=== PATIENT | male | born 1950 ===

== ENCOUNTER 2017-03-30 06:14 | Inpatient (IN) | payer MEDICARE, OTHER ==
[2017-03-17 12:35] VITALS: BMI 19.5
[2017-03-30] MEDS ORDERED: Midazolam 2 MG/2 ML VIAL ONE (07:25)
[2017-03-30] MEDS ORDERED: Succinylcholine 200 mg/10 ml Inj IV ONE (07:25)
[2017-03-30] MEDS ORDERED: Rocuronium 10 mg/ml (5 ml) ONE ×2 (07:25→09:31)
[2017-03-30] MEDS ORDERED: Propofol 10 mg/ml Inj (20 ML) ONE (07:26)
[2017-03-30] MEDS ORDERED: Bupivacaine 0.5% Inj(30mL) ONE (07:29)
[2017-03-30] MEDS ORDERED: ePHEDrine 50 mg/ml Inj ONE (08:03)
[2017-03-30] MEDS ORDERED: Tranexamic Acid 2 ML ONE (08:14)
[2017-03-30] MEDS ORDERED: Bupivacaine Liposomal Inj 20 ml ONE (08:15)
[2017-03-30] MEDS ORDERED: Sodium Chloride 0.9% 40 ML IV ONE (08:25)
[2017-03-30] MEDS ORDERED: Morphine 1 mg/ml preservative-free Inj(Duramorph) ONE (10:29)
[2017-03-30] MEDS ORDERED: Neostigmine Methylsulfate 3mg/3ml Syringe IV ONE (11:00)
[2017-03-30] MEDS ORDERED: HYDROmorphone 0.5 mg/0.5 ml ISec IVP PRN ×2 (11:25→12:00)
[2017-03-30] MEDS ORDERED: Sodium Chloride 0.9% 1,000 ML IV SCH (11:30)
[2017-03-30] MEDS ORDERED: HYDROmorphone 0.5 mg/0.5 ml ISec ONE ×3 (11:58→12:15)
[2017-03-30] MEDS ORDERED: HYDROmorphone 0.5 mg/0.5 ml ISec IVP ONE ×3 (11:59→12:29)
[2017-03-30] MEDS ORDERED: Albuterol 0.5% Inhal Sol (2.5 mg/0.5 ml) UD IH PRN (12:05)
--- NOTE | 2017-03-30 13:29 | RAD ---
PROCEDURE: Pelvis single view HISTORY: TOTAL HIP REPLACEMENT (RIGHT) COMPARISON: TECHNIQUE: Single-view FINDINGS: There is a right hip prosthesis in satisfactory position. There are no complicating factors. Degenerative changes are seen in the left hip IMPRESSION: As above
[2017-03-30] MEDS: ceFAZolin 2 GM in Sodium Chloride 0.9% 100 ML IVPB SCH ×2 (16:48→23:18)
[2017-03-30] MEDS: Sodium Chloride 0.9% 1,000 ML IV SCH (16:48)
[2017-03-30] MEDS: Oxycodone/Acetaminophen 5/325 mg Tab PO PRN (21:14)
[2017-03-30] MEDS ORDERED: Pneumococcal 23-Valent Vaccine IM ONE (22:31)
[2017-03-30] MEDS ORDERED: Influenza Vaccine 60 mcg/0.5 mL SYR (4YR UP) IM ONE (22:31)
--- NOTE | 2017-03-30 22:33 | CP.PCM.CON ---
<Cherri Luis - Last Filed: 03/30/17 22:19> History of Present Illness - History of Present Illness History of Present Illness: Medicine Consult Note Reason for consult: Post op management This 66yo M with past medical history osteoarthritis and tobacco abuse who admitted for status post R hip replacement day #0. There were no complications post op. Hip replacement was done because of DJD. Patient is resting comfortably in bed. He reports feeling well today with mild pain in his R hip. Patient says he feels anxious at time. He denies chest pain, shortness of breath , nausea/vomiting/diarrhea, fever/chills, constipation, dysuria/hematuria, numbness/tingling. Past medical history: osteoarthritis, tobacco abuse, anxiety Past surgical history: B/L cataract, R hip replacement Home meds: Naproxen, Protonix, Klonipin as needed Allergies: NKDA Social history: smokes 15 cig per day x 40yrs, denies EtOH or drug use Family history: Breast cancer- Sister PMD: Dr. Cherry Review of Systems - Review of Systems All systems: reviewed and no additional remarkable complaints except Review of Systems: 12 point ROS reviewed as per HPI Past Patient History - Past Social History Smoking Status: Heavy Smoker > 10 Cigarettes Daily Alcohol: None Drugs: Denies - CARDIAC Hx Pacemaker: No - PULMONARY Hx Respiratory Disorders: Yes Hx Asthma: Yes - NEUROLOGICAL Hx Paralysis: No - HEENT Hx Cataracts: Yes - ENDOCRINE/METABOLIC Hx Endocrine Disorders: No - HEMATOLOGICAL/ONCOLOGICAL Hx Blood Transfusions: No - MUSCULOSKELETAL/RHEUMATOLOGICAL Hx Musculoskeletal Disorders: Yes - GASTROINTESTINAL Hx Gastrointestinal Disorders: No - GENITOURINARY/GYNECOLOGICAL Hx Genitourinary Disorders: No Hx Reproductive Disorders: No - PSYCHIATRIC Hx Emotional Abuse: No Hx Physical Abuse: No Hx Substance Use: No - SURGICAL HISTORY Hx Surgeries: Yes - ANESTHESIA Hx Anesthesia Reactions: No Hx Malignant Hyperthermia: No Meds Allergies/Adverse Reactions: Allergies Allergy/AdvReac Type Severity Reaction Status Date / Time No Known Allergies Allergy Verified 03/17/17 12:34 - Medications Medications: Current Medications Acetaminophen (Tylenol 325mg Tab) 650 mg PO Q4H PRN PRN Reason: Fever >100.4 F Albuterol Sulfate (Albuterol 0.5% Inhal Sylvia (2.5 Mg/0.5 Ml) Ud) 2.5 mg IH DAILY PRN PRN Reason: Shortness of Breath Clonazepam (Klonopin) 0.5 mg PO HS [facility] PRN Reason: Protocol Last Admin: 03/30/17 21:15 Dose: 0.5 mg Docusate Sodium (Colace) 100 mg PO BID [facility] Last Admin: 03/30/17 17:12 Dose: 100 mg Enoxaparin Sodium (Lovenox) 40 mg SC DAILY [facility] PRN Reason: Protocol Hydromorphone HCl (Dilaudid) 0.5 mg IVP Q4H PRN PRN Reason: Pain, severe (8-10) Cefazolin Sodium 2 gm/ Sodium (Chloride) 100 mls @ 200 mls/hr IVPB Q8H [facility] PRN Reason: Protocol Stop: 03/31/17 00:29 Last Admin: 03/30/17 16:48 Dose: 200 mls/hr Sodium Chloride (Sodium Chloride 0.9%) 1,000 mls @ 100 mls/hr IV .Q10H [facility] Last Admin: 03/30/17 16:48 Dose: 100 mls/hr Metoclopramide HCl (Reglan) 10 mg IV ONCE PRN PRN Reason: Nausea/Vomiting Nicotine (Nicoderm Cq) 1 patch TD DAILY [facility] Last Admin: 03/30/17 21:20 Dose: 1 patch Oxycodone/Acetaminophen (Percocet 5/325 Mg Tab) 2 tab PO Q4H PRN PRN Reason: Pain, moderate (4-7) Stop: 04/02/17 11:58 Last Admin: 03/30/17 21:14 Dose: 2 tab Pantoprazole Sodium (Protonix Ec Tab) 40 mg PO DAILY [facility] Physical Exam - Constitutional Appears: No Acute Distress - Head Exam Head Exam: ATRAUMATIC, NORMAL INSPECTION, NORMOCEPHALIC - Eye Exam Eye Exam: Normal appearance, PERRL Pupil Exam: NORMAL ACCOMODATION, PERRL - ENT Exam ENT Exam: Mucous Membranes Moist - Respiratory Exam Respiratory Exam: Clear to Auscultation Bilateral, NORMAL BREATHING PATTERN. absent: Rales, Rhonchi, Wheezes - Cardiovascular Exam Cardiovascular Exam: REGULAR RHYTHM, +S1, +S2. absent: Gallop, Rubs, Systolic Murmur - GI/Abdominal Exam GI & Abdominal Exam: Normal Bowel Sounds, Soft. absent: Mass, Rebound, Rigid, Tenderness - Extremities Exam Additional comments: R hip dressing in place- clean and dry - Neurological Exam Neurological exam: Alert, CN II-XII Intact, Oriented x3 - Skin Skin Exam: Dry, Warm Results - Vital Signs Recent Vital Signs: Last Vital Signs Temp 97.2 F L 03/30/17 16:00 Pulse 69 03/30/17 16:00 Resp 18 03/30/17 16:00 BP 97/59 L 03/30/17 16:00 Pulse Ox 95 03/30/17 16:00 - Labs Labs: Laboratory Results - last 24 hr 03/30/17 06:33 Blood Type O POSITIVE Antibody Screen Negative BBK History Checked Patient has bt Assessment & Plan - Assessment and Plan (Free Text) Assessment: This 66yo M with past medical history osteoarthritis and tobacco abuse who admitted for status post R hip replacement day #0. Plan: 1. R Hip replacement - Post op day #0 - Follow up ortho recs - Ancef as per PMD - Continue pain control with dilaudid and Percocet - NS@100 - Reglan prn nausea - Colace - Tylenol prn fever 2. Tobacco abuse - Nicoderm patch - Duoneb prn - counseled on smoking cessation 3. Remote hx of anxiety - Klonopin prn anxiety GI ppx: Protonix DVT ppx: Lovenox Case seen, discussed and reviewed with attending. Jamshid Luis PGY2 <Frida Plascencia - Last Filed: 03/31/17 03:07> Meds - Medications Medications: Current Medications Acetaminophen (Tylenol 325mg Tab) 650 mg PO Q4H PRN PRN Reason: Fever >100.4 F Albuterol Sulfate (Albuterol 0.5% Inhal Sylvia (2.5 Mg/0.5 Ml) Ud) 2.5 mg IH DAILY PRN PRN Reason: Shortness of Breath Clonazepam (Klonopin) 0.5 mg PO HS [facility] PRN Reason: Protocol Last Admin: 03/30/17 21:15 Dose: 0.5 mg Diphenhydramine HCl (Benadryl) 25 mg PO Q6 PRN PRN Reason: Itching / Pruritus Docusate Sodium (Colace) 100 mg PO BID [facility] Last Admin: 03/30/17 17:12 Dose: 100 mg Enoxaparin Sodium (Lovenox) 40 mg SC DAILY [facility] PRN Reason: Protocol Hydromorphone HCl (Dilaudid) 0.5 mg IVP Q4H PRN PRN Reason: Pain, severe (8-10) Sodium Chloride (Sodium Chloride 0.9%) 1,000 mls @ 100 mls/hr IV .Q10H [facility] Last Admin: 03/30/17 16:48 Dose: 100 mls/hr Metoclopramide HCl (Reglan) 10 mg IV ONCE PRN PRN Reason: Nausea/Vomiting Nicotine (Nicoderm Cq) 1 patch TD DAILY [facility] Last Admin: 03/30/17 21:20 Dose: 1 patch Oxycodone/Acetaminophen (Percocet 5/325 Mg Tab) 2 tab PO Q4H PRN PRN Reason: Pain, moderate (4-7) Stop: 04/02/17 11:58 Last Admin: 03/30/17 21:14 Dose: 2 tab Pantoprazole Sodium (Protonix Ec Tab) 40 mg PO DAILY [facility] Results - Vital Signs Recent Vital Signs: Last Vital Signs Temp 97.2 F L 03/30/17 22:16 Pulse 69 03/30/17 22:16 Resp 18 03/30/17 22:16 BP 97/59 L 03/30/17 22:16 Pulse Ox 95 03/30/17 16:00 - Labs Labs: Laboratory Results - last 24 hr 03/30/17 06:33 Blood Type O POSITIVE Antibody Screen Negative BBK History Checked Patient has bt Attending/Attestation - Attestation I have personally seen and examined this patient.: Yes I have fully participated in the care of the patient.: Yes I have reviewed all pertinent clinical information: Yes Notes (Text): 03/31/17 03:06 Patient was seen when he was in bed # 562-01. Agree with consult note.
--- NOTE | 2017-03-31 00:25 | OP ---
PROCEDURE DATE: 03/30/2017 PREOPERATIVE DIAGNOSIS: Right hip arthritis. POSTOPERATIVE DIAGNOSIS: Right hip arthritis. PROCEDURE: Right total hip arthroplasty. SURGEON: Rolando Max MD. EMPLOYEE DEVELOPMENT DIRECTOR: Grace Croft, the physician dental laboratory assistant. Ms. Croft was scrubbed and present throughout the entire case and assisted in the patient's positioning, retraction and wound closure. TYPE OF ANESTHESIA: General. COMPLICATIONS: None. ESTIMATED BLOOD LOSS: 100 mL. IMPLANT: Biomet Dual Mobility hip. INDICATION FOR PROCEDURE: This is a 66-year-old gentleman with longstanding right hip pain. Clinical examination was consistent with a mild limb length discrepancy with the right leg longer than the left. Pain and loss of range of motion with internal and external rotation. Pain with resisted hip flexion and gait abnormality. Radiographic examination consistent with advanced degenerative joint disease. After a period of failed nonsurgical management, recommendation was for right total hip arthroplasty. The risks, benefits, and alternatives of the procedure were discussed with the patient and informed consent was obtained. DESCRIPTION OF PROCEDURE: After the surgical site was finally identified in the preoperative holding area, the patient was taken to the operating room and placed supine on the operating table. After administration of general anesthesia, the patient received 2 g of Ancef IV. Stewart catheter was inserted. The patient was then positioned in the lateral decubitus position with the right hip up towards the ceiling. Care was taken to make sure all bony prominences and nerves were well padded and protected. A Venodyne boot was placed on nonoperative extremity. Axillary roll was placed in the left axilla and the right lower extremity was prepped and draped in the usual sterile fashion. Bony landmarks were identified about the right hip and approximately a 10 cm curvilinear incision was made. Soft tissue was dissected sharply down to the fascia. The fascia was incised and Charnley retractor was placed. Short external rotators were identified, tagged, and resected off the proximal femur. T-type capsulotomy was performed and the hip was dislocated. At this point, based on our preoperative templating, femoral neck resection was done and the femoral head was removed. It was then passed off as specimen. An anterior capsulotomy was performed with the acetabulum was adequately exposed. The acetabulum was reamed sequentially to allow for 54 mm press-fit cup. Care was taken to maintain proper acetabular height and version. A trial cup was placed and satisfied with the position. The trial was removed and the hip was pulse lavaged. The bony surfaces were dried and actual cup was impacted into place. The cup was further fixed with 2 screws in posterior and superior quadrants. At this point, a trial liner was placed. Attention was then directed to the femur. Medullary canal of the proximal femur was reamed and broached sequentially to allow for 12 mm press-fit stem. The calcar was planned with a trial neck and head in place, the hip was reduced and was taken through a range of motion, was noted to be stable with approximately equal limb lengths. At this point, the trial components were removed and the hip joint was pulse lavaged again with antibiotic saline solution. The bony surfaces were dried and the actual stem was impacted into place making sure to maintain proper version. Actual liner and head were then placed and the hip was reduced. Again, the hip was taken through a range of motion and was noted to be stable with approximately equal limb length. At this point, capsule was repaired to bone using #1 Vicryl suture. The short external rotators were also repaired in a similar fashion using #1 Vicryl suture. Deep fascia was closed using #1 Vicryl suture and the subcutaneous tissue was closed using 0 Vicryl and 2-0 Vicryl suture and the skin was closed using boogie. A sterile dressing was applied, and abduction pillow was placed. Intraoperative x-rays were taken showing the hip implants in good position. At this point, the patient was awakened from the procedure and taken to the recovery room in stable condition. Rolando Max MD
[2017-03-31] MEDS: Oxycodone/Acetaminophen 5/325 mg Tab PO PRN (03:12)
[2017-03-31 07:00] LABS: BASO # 0.01 K/mm3 (0.0-2.0); BASO % 0.1 % (0.0-3.0); EOS # 0.1 (0.0-0.7); EOS % 0.6 % (1.5-5.0); GRAN # 5.27 (1.4-6.5); GRAN % 66.5 % (50.0-68.0); HEMOGLOBIN 9.6 g/dL (14.0-18.0); LYMPH # 1.7 (1.2-3.4); MEAN CELL VOLUME 92.6 fl (80.0-105.0); MEAN CORPUSCULAR HEMOGLOBIN 30.8 pg (25.0-35.0); MEAN CORPUSCULAR HGB CONC 33.2 g/dl (31.0-37.0); MEAN PLATELET VOLUME 10.7 fl (7.0-11.0); MONO # 0.9 (0.1-0.6); MONO % 11.8 % (1.0-6.0); RBC 3.12 10^6/uL (3.5-6.1); RED CELL DISTRIBUTION WIDTH 13.6 % (11.5-14.5); WHITE BLOOD COUNT 7.9 10^3/ul (4.5-11.0)
[2017-03-31 08:00] LABS: ALBUMIN 2.7 g/dL (3.0-4.8); ALT/SGPT 29 U/L (7-56); AST/SGOT 31 U/L (17-59); BLOOD UREA NITROGEN 15 mg/dL (7-21); CALCIUM 8.1 mg/dL (8.4-10.5); GFR AFRICAN-AMERICAN > 60; GFR NON-AFRICAN AMERICAN > 60
[2017-03-31] MEDS ORDERED: DiphenhydrAMINE 12.5 mg/5 ml LIQ UD (5 ml) PO STA (08:52)
--- NOTE | 2017-03-31 09:28 | CP.PCM.PN ---
Subjective - Date & Time of Evaluation Date of Evaluation: 03/31/17 Time of Evaluation: 09:25 - Subjective Subjective: Patient is POD#1 s/p R MARLENI. Patient denies any significant pain. Hip abduction pillow in place while in bed VSS WBC 7.9 Hgb 9.6 R hip: dressings are dry and intact. Thigh and calf are soft nontender. NVI distally Stewart has been d/c POD#1 s/p R MARLENI Cont DVT prophylaxis Cont WBAT Cont physical therapy with gait training Cont hip abduction pillow at all times while in bed Cont posterior hip precautions at all times Will consult case management to start discharge planning to home or rehab facility Laboratory Results - last 24 hr 03/31/17 03/31/17 06:40 06:40 WBC 7.9 D RBC 3.12 L Hgb 9.6 L D Hct 28.9 L MCV 92.6 MCH 30.8 MCHC 33.2 RDW 13.6 Plt Count 150 MPV 10.7 Gran % 66.5 Lymph % (Auto) 21.0 L Carolina % (Auto) 11.8 H Eos % (Auto) 0.6 L Baso % (Auto) 0.1 Gran # 5.27 Lymph # (Auto) 1.7 Carolina # (Auto) 0.9 H Eos # (Auto) 0.1 Baso # (Auto) 0.01 Sodium 138 Potassium 4.1 Chloride 108 H Carbon Dioxide 24 Anion Gap 11 BUN 15 Creatinine 1.0 Est GFR ( Amer) > 60 Est GFR (Non-Af Amer) > 60 Random Glucose 104 Calcium 8.1 L Total Bilirubin 0.7 AST 31 ALT 29 Alkaline Phosphatase 53 Total Protein 5.4 L Albumin 2.7 L Globulin 2.7 Albumin/Globulin Ratio 1.0 L Objective - Vital Signs/Intake and Output Vital Signs (last 24 hours): Temp Pulse Resp BP Pulse Ox 98.9 F 86 18 110/66 96 03/31/17 08:16 03/31/17 08:16 03/31/17 08:16 03/31/17 08:16 03/31/17 08:16 Intake and Output: 03/31/17 03/31/17 06:59 18:59 Intake Total 540 Output Total 550 Balance -10 - Medications Medications: Current Medications Acetaminophen (Tylenol 325mg Tab) 650 mg PO Q4H PRN PRN Reason: Fever >100.4 F Albuterol Sulfate (Albuterol 0.5% Inhal Sylvia (2.5 Mg/0.5 Ml) Ud) 2.5 mg IH DAILY PRN PRN Reason: Shortness of Breath Clonazepam (Klonopin) 0.5 mg PO HS [facility] PRN Reason: Protocol Last Admin: 03/30/17 21:15 Dose: 0.5 mg Diphenhydramine HCl (Benadryl) 25 mg PO Q6 PRN PRN Reason: Itching / Pruritus Last Admin: 03/31/17 03:13 Dose: 25 mg Docusate Sodium (Colace) 100 mg PO BID [facility] Last Admin: 03/30/17 17:12 Dose: 100 mg Enoxaparin Sodium (Lovenox) 40 mg SC DAILY [facility] PRN Reason: Protocol Hydromorphone HCl (Dilaudid) 0.5 mg IVP Q4H PRN PRN Reason: Pain, severe (8-10) Sodium Chloride (Sodium Chloride 0.9%) 1,000 mls @ 100 mls/hr IV .Q10H [facility] Last Admin: 03/30/17 16:48 Dose: 100 mls/hr Loratadine (Claritin) 10 mg PO DAILY [facility] Metoclopramide HCl (Reglan) 10 mg IV ONCE PRN PRN Reason: Nausea/Vomiting Nicotine (Nicoderm Cq) 1 patch TD DAILY [facility] Last Admin: 03/30/17 21:20 Dose: 1 patch Oxycodone/Acetaminophen (Percocet 5/325 Mg Tab) 2 tab PO Q4H PRN PRN Reason: Pain, moderate (4-7) Stop: 04/02/17 11:58 Last Admin: 03/31/17 03:12 Dose: 2 tab Pantoprazole Sodium (Protonix Ec Tab) 40 mg PO DAILY [facility] - Labs Labs: 03/31/17 06:40 03/31/17 06:40
[2017-03-31] MEDS: Pantoprazole 40 mg EC Tab PO SCH (09:32)
[2017-03-31] MEDS: Enoxaparin 40 mg Syringe SC SCH (09:32)
--- NOTE | 2017-03-31 12:59 | CP.PCM.PN ---
Addendum entered and electronically signed by Cullen Romo DO 03/31/17 13:16 : Assessment #4: Anemia - Hgb lower than baseline - patient no visibly bleeding from incision site and no hematomas on exam - Per ortho team, the blood loss was not excessive in OR - continue monitoring as asymptomatic at this time Original Note: <Cullen Romo - Last Filed: 03/31/17 13:06> Subjective - Date & Time of Evaluation Date of Evaluation: 03/31/17 Time of Evaluation: 08:55 - Subjective Subjective: Cullen Romo PGY1 IM Progress Note Patient was seen and examined. Denies no acute overnight events. States his surgery was due to his arthritis. Patient is improving and is OOB to chair and is comfortable. Complaining of itchiness, maybe from pain medication, but denies shortness of breath, breathing difficulty or any wheezing. Patient denies chest pain, numbness tingling, temperature changes in leg, fevers/chills , n/v/d and is tolerating diet well PMD: Dr. Cherry Objective - Vital Signs/Intake and Output Vital Signs (last 24 hours): Temp Pulse Resp BP Pulse Ox 98.9 F 86 18 110/66 96 03/31/17 08:16 03/31/17 08:16 03/31/17 08:16 03/31/17 08:16 03/31/17 08:16 Intake and Output: 03/31/17 03/31/17 06:59 18:59 Intake Total 540 Output Total 550 Balance -10 - Medications Medications: Current Medications Acetaminophen (Tylenol 325mg Tab) 650 mg PO Q4H PRN PRN Reason: Fever >100.4 F Albuterol Sulfate (Albuterol 0.5% Inhal Sylvia (2.5 Mg/0.5 Ml) Ud) 2.5 mg IH DAILY PRN PRN Reason: Shortness of Breath Clonazepam (Klonopin) 0.5 mg PO HS [facility] PRN Reason: Protocol Last Admin: 03/30/17 21:15 Dose: 0.5 mg Diphenhydramine HCl (Benadryl) 25 mg PO Q6 PRN PRN Reason: Itching / Pruritus Last Admin: 03/31/17 03:13 Dose: 25 mg Docusate Sodium (Colace) 100 mg PO BID [facility] Last Admin: 03/31/17 09:32 Dose: 100 mg Enoxaparin Sodium (Lovenox) 40 mg SC DAILY [facility] PRN Reason: Protocol Last Admin: 03/31/17 09:32 Dose: 40 mg Hydromorphone HCl (Dilaudid) 0.5 mg IVP Q4H PRN PRN Reason: Pain, severe (8-10) Sodium Chloride (Sodium Chloride 0.9%) 1,000 mls @ 100 mls/hr IV .Q10H [facility] Last Admin: 03/30/17 16:48 Dose: 100 mls/hr Loratadine (Claritin) 10 mg PO DAILY [facility] Last Admin: 03/31/17 09:32 Dose: 10 mg Metoclopramide HCl (Reglan) 10 mg IV ONCE PRN PRN Reason: Nausea/Vomiting Nicotine (Nicoderm Cq) 1 patch TD DAILY [facility] Last Admin: 03/31/17 09:32 Dose: 1 patch Pantoprazole Sodium (Protonix Ec Tab) 40 mg PO DAILY [facility] Last Admin: 03/31/17 09:32 Dose: 40 mg Tramadol HCl (Ultram) 50 mg PO Q6H PRN PRN Reason: Pain, moderate (4-7) Last Admin: 03/31/17 12:08 Dose: 50 mg - Labs Labs: 03/31/17 06:40 03/31/17 06:40 - Constitutional Appears: Well, Non-toxic, No Acute Distress - Head Exam Head Exam: NORMAL INSPECTION - Eye Exam Eye Exam: EOMI, Normal appearance, PERRL - ENT Exam ENT Exam: Mucous Membranes Moist - Neck Exam Neck Exam: Normal Inspection - Respiratory Exam Respiratory Exam: NORMAL BREATHING PATTERN. absent: Rales, Rhonchi, Wheezes - Cardiovascular Exam Cardiovascular Exam: RRR, +S1, +S2 - GI/Abdominal Exam GI & Abdominal Exam: Soft, Normal Bowel Sounds. absent: Distended, Tenderness - Extremities Exam Extremities Exam: Normal Inspection. absent: Pedal Edema Additional comments: pedal pulses 2+ b/l dressing on lateral R hip clean/dry/intact - Back Exam Back Exam: NORMAL INSPECTION - Neurological Exam Neurological Exam: Alert, Awake, Oriented x3 - Psychiatric Exam Psychiatric exam: Normal Affect, Normal Mood - Skin Skin Exam: Normal Color, Warm Assessment and Plan - Assessment and Plan (Free Text) Assessment: 66yo M with past medical history osteoarthritis and tobacco abuse who admitted for status post R hip replacement POD1. Plan: 1. R Hip replacement - Post op day #1 - Follow up ortho recs - Ancef as per PMD - Continue pain control with dilaudid and Percocet, monitor for signs of allergic rxn, recommend primary team to consider change in med if they see appropriate - Benadryl PRN added - claritin daily added - NS@100 - Reglan prn nausea - Colace - Tylenol prn fever 2. Tobacco abuse - Nicoderm patch - Duoneb prn - counseled on smoking cessation 3. Remote hx of anxiety - Klonopin prn anxiety GI ppx: Protonix DVT ppx: Lovenox Patient will follow up with Dr. Cherry and Dr. Max upon discharge. Medically stable. Patient was seen, examined and discussed with attending, Dr. Samia Romo PGY1 Pager # [phone] <Tere Gracia - Last Filed: 03/31/17 17:49> Objective - Vital Signs/Intake and Output Vital Signs (last 24 hours): Temp Pulse Resp BP Pulse Ox 98.9 F 86 18 110/66 96 03/31/17 08:16 03/31/17 08:16 03/31/17 08:16 03/31/17 08:16 03/31/17 08:16 Intake and Output: 03/31/17 03/31/17 06:59 18:59 Intake Total 540 500 Output Total 550 500 Balance -10 0 - Medications Medications: Current Medications Acetaminophen (Tylenol 325mg Tab) 650 mg PO Q4H PRN PRN Reason: Fever >100.4 F Albuterol Sulfate (Albuterol 0.5% Inhal Sylvia (2.5 Mg/0.5 Ml) Ud) 2.5 mg IH DAILY PRN PRN Reason: Shortness of Breath Clonazepam (Klonopin) 0.5 mg PO HS [facility] PRN Reason: Protocol Last Admin: 03/30/17 21:15 Dose: 0.5 mg Diphenhydramine HCl (Benadryl) 25 mg PO Q6 PRN PRN Reason: Itching / Pruritus Last Admin: 03/31/17 03:13 Dose: 25 mg Docusate Sodium (Colace) 100 mg PO BID [facility] Last Admin: 03/31/17 17:10 Dose: 100 mg Enoxaparin Sodium (Lovenox) 40 mg SC DAILY [facility] PRN Reason: Protocol Last Admin: 03/31/17 09:32 Dose: 40 mg Hydromorphone HCl (Dilaudid) 0.5 mg IVP Q4H PRN PRN Reason: Pain, severe (8-10) Sodium Chloride (Sodium Chloride 0.9%) 1,000 mls @ 100 mls/hr IV .Q10H [facility] Last Admin: 03/30/17 16:48 Dose: 100 mls/hr Loratadine (Claritin) 10 mg PO DAILY [facility] Last Admin: 03/31/17 09:32 Dose: 10 mg Nicotine (Nicoderm Cq) 1 patch TD DAILY [facility] Last Admin: 03/31/17 09:32 Dose: 1 patch Pantoprazole Sodium (Protonix Ec Tab) 40 mg PO DAILY [facility] Last Admin: 03/31/17 09:32 Dose: 40 mg Tramadol HCl (Ultram) 50 mg PO Q6H PRN PRN Reason: Pain, moderate (4-7) Last Admin: 03/31/17 12:08 Dose: 50 mg - Labs Labs: 03/31/17 06:40 03/31/17 06:40 Attending/Attestation - Attestation I have personally seen and examined this patient.: Yes I have fully participated in the care of the patient.: Yes I have reviewed all pertinent clinical information, including history, physical exam and plan: Yes Notes (Text): 03/31/17 17:45 Attending note; Patient seen and examined with resident. Patient is a 66 year old male with past medical history osteoarthritis and tobacco abuse who admitted for status post R hip replacement POD1. Incision site is clean. No hematoma noted. Patient was evaluated by orthopedics today. Hemoglobin on the low side from baseline. Monitor closely. PT evaluation requested. Possible discharge home within 24-48 hours. Continue DVT prophylaxis. Follow-up closely with orthopedics Dr. Ribera. Upon discharge the patient will follow up with PMD Dr. Cherry.
[2017-03-31 17:00] LABS: URINE BILIRUBIN NEGATIVE (NEGATIVE); URINE BLOOD TRACE-INTACT (NEGATIVE); URINE GLUCOSE (UA) NEGATIVE (NEGATIVE); URINE LEUKOCYTE ESTERASE NEGATIVE Leu/uL (NEGATIVE); URINE NITRATE NEGATIVE (NEGATIVE); URINE PROTEIN NEGATIVE mg/dL (<30 mg/dL); URINE UROBILINOGEN 0.2 E.U./dL (<1 E.U./dL)
[2017-03-31 17:13] LABS: URINE APPEARANCE CLEAR (CLEAR); URINE COLOR YELLOW (YELLOW)
[2017-03-31 17:18] LABS: URINE BACTERIA FEW (NEG)
[2017-03-31] MEDS: Sodium Chloride 0.9% 1,000 ML IV SCH (21:31)
[2017-04-01 07:14] LABS: BASO # 0.02 K/mm3 (0.0-2.0); BASO % 0.2 % (0.0-3.0); RED CELL DISTRIBUTION WIDTH 13.2 % (11.5-14.5)
[2017-04-01 07:31] LABS: ALBUMIN 2.9 g/dL (3.0-4.8); ALT/SGPT 19 U/L (7-56); AST/SGOT 35 U/L (17-59); BLOOD UREA NITROGEN 9 mg/dL (7-21); CALCIUM 8.6 mg/dL (8.4-10.5); GFR AFRICAN-AMERICAN > 60; GFR NON-AFRICAN AMERICAN > 60
--- NOTE | 2017-04-01 08:23 | CP.PCM.PN ---
Subjective - Date & Time of Evaluation Date of Evaluation: 04/01/17 Time of Evaluation: 08:17 - Subjective Subjective: Patient POD#2 s/p R MARLENI. Patient denies any significant pain. Patient would like to go home today. R hip: dressings removed. Incision clean and intact. No erythema or drainage from incision site. No signs of infection or cellulitis Incision cleaned and new light dry dressings applied. thigh and calf soft nontender. NVI distally POD#2 s/p R MARLENI Patient doing well, will plan to discharge to home today with home physical therapy and visiting nurse Cont DVT prophylaxis for the next 2 weeks Will follow up with labs today before discharging Will see patient in office for follow up appt. Objective - Vital Signs/Intake and Output Vital Signs (last 24 hours): Temp Pulse Resp BP Pulse Ox 98.2 F 93 H 20 131/66 95 03/31/17 16:00 03/31/17 16:00 03/31/17 16:00 03/31/17 16:00 03/31/17 16:00 Intake and Output: 04/01/17 04/01/17 06:59 18:59 Intake Total 180 Output Total 1200 Balance -1020 - Medications Medications: Current Medications Acetaminophen (Tylenol 325mg Tab) 650 mg PO Q4H PRN PRN Reason: Fever >100.4 F Albuterol Sulfate (Albuterol 0.5% Inhal Sylvia (2.5 Mg/0.5 Ml) Ud) 2.5 mg IH DAILY PRN PRN Reason: Shortness of Breath Clonazepam (Klonopin) 0.5 mg PO HS NGOZI PRN Reason: Protocol Last Admin: 03/31/17 21:33 Dose: 0.5 mg Diphenhydramine HCl (Benadryl) 25 mg PO Q6 PRN PRN Reason: Itching / Pruritus Last Admin: 03/31/17 03:13 Dose: 25 mg Docusate Sodium (Colace) 100 mg PO BID [facility] Last Admin: 03/31/17 17:10 Dose: 100 mg Enoxaparin Sodium (Lovenox) 40 mg SC DAILY NGOZI PRN Reason: Protocol Last Admin: 03/31/17 09:32 Dose: 40 mg Hydromorphone HCl (Dilaudid) 0.5 mg IVP Q4H PRN PRN Reason: Pain, severe (8-10) Sodium Chloride (Sodium Chloride 0.9%) 1,000 mls @ 100 mls/hr IV .Q10H [facility] Last Admin: 03/31/17 21:31 Dose: 100 mls/hr Loratadine (Claritin) 10 mg PO DAILY [facility] Last Admin: 03/31/17 09:32 Dose: 10 mg Nicotine (Nicoderm Cq) 1 patch TD DAILY [facility] Last Admin: 03/31/17 09:32 Dose: 1 patch Pantoprazole Sodium (Protonix Ec Tab) 40 mg PO DAILY [facility] Last Admin: 03/31/17 09:32 Dose: 40 mg Tramadol HCl (Ultram) 50 mg PO Q6H PRN PRN Reason: Pain, moderate (4-7) Last Admin: 04/01/17 06:06 Dose: 50 mg - Labs Labs: 03/31/17 06:40 04/01/17 06:30
[2017-04-01 08:31] LABS: EOS % 0.4 % (1.5-5.0); GRAN # 6.44 (1.4-6.5); GRAN % 68.3 % (50.0-68.0); HEMOGLOBIN 9.8 g/dL (14.0-18.0); MEAN CORPUSCULAR HEMOGLOBIN 30.3 pg (25.0-35.0); MEAN CORPUSCULAR HGB CONC 33.3 g/dl (31.0-37.0); MEAN PLATELET VOLUME 10.8 fl (7.0-11.0); MONO % 10.1 % (1.0-6.0); RBC 3.23 10^6/uL (3.5-6.1); WHITE BLOOD COUNT 9.4 10^3/ul (4.5-11.0)
[2017-04-01 09:03] VITALS: BP 142/91; PULSE 95; RESP 24; TEMP 99.7; O2SAT 94
[2017-04-01] MEDS: Pantoprazole 40 mg EC Tab PO SCH (10:27)
[2017-04-01] MEDS: Enoxaparin 40 mg Syringe SC SCH (10:28)
--- NOTE | 2017-04-01 17:15 | CP.PCM.PN ---
<Cullen Romo - Last Filed: 04/02/17 04:36> Subjective - Date & Time of Evaluation Date of Evaluation: 04/02/17 Time of Evaluation: 09:37 - Subjective Subjective: Cullen Romo PGY1 IM Progress Note Patient was seen and examined. Denies no acute overnight events. Patient is improving and pain is controlled. Patient instructed by his ortho team that he will be cleared to go home today. Patient has good support system at home. Patient denies chest pain, numbness tingling, temperature changes in leg, fevers /chills, n/v/d and is tolerating diet well Objective - Vital Signs/Intake and Output Vital Signs (last 24 hours): Temp Pulse Resp BP Pulse Ox 99.7 F H 95 H 24 142/91 H 94 L 04/01/17 08:00 04/01/17 08:00 04/01/17 08:00 04/01/17 08:00 04/01/17 08:00 Intake and Output: 04/01/17 04/01/17 06:59 18:59 Intake Total 180 780 Output Total 1200 550 Balance -1020 230 - Medications Medications: Current Medications Acetaminophen (Tylenol 325mg Tab) 650 mg PO Q4H PRN PRN Reason: Fever >100.4 F Albuterol Sulfate (Albuterol 0.5% Inhal Sylvia (2.5 Mg/0.5 Ml) Ud) 2.5 mg IH DAILY PRN PRN Reason: Shortness of Breath Clonazepam (Klonopin) 0.5 mg PO HS NGOZI PRN Reason: Protocol Last Admin: 03/31/17 21:33 Dose: 0.5 mg Diphenhydramine HCl (Benadryl) 25 mg PO Q6 PRN PRN Reason: Itching / Pruritus Last Admin: 03/31/17 03:13 Dose: 25 mg Docusate Sodium (Colace) 100 mg PO BID NGOZI Last Admin: 04/01/17 10:27 Dose: 100 mg Enoxaparin Sodium (Lovenox) 40 mg SC DAILY NGOZI PRN Reason: Protocol Last Admin: 04/01/17 10:28 Dose: 40 mg Hydromorphone HCl (Dilaudid) 0.5 mg IVP Q4H PRN PRN Reason: Pain, severe (8-10) Sodium Chloride (Sodium Chloride 0.9%) 1,000 mls @ 100 mls/hr IV .Q10H [facility] Last Admin: 03/31/17 21:31 Dose: 100 mls/hr Loratadine (Claritin) 10 mg PO DAILY [facility] Last Admin: 04/01/17 10:27 Dose: 10 mg Nicotine (Nicoderm Cq) 1 patch TD DAILY [facility] Last Admin: 04/01/17 10:28 Dose: 1 patch Pantoprazole Sodium (Protonix Ec Tab) 40 mg PO DAILY [facility] Last Admin: 04/01/17 10:27 Dose: 40 mg Tramadol HCl (Ultram) 50 mg PO Q6H PRN PRN Reason: Pain, moderate (4-7) Last Admin: 04/01/17 06:06 Dose: 50 mg - Labs Labs: 04/01/17 06:30 04/01/17 06:30 - Additional Findings Additional findings: - Constitutional Appears: Well, Non-toxic, No Acute Distress - Head Exam Head Exam: NORMAL INSPECTION - Eye Exam Eye Exam: EOMI, Normal appearance, PERRL - ENT Exam ENT Exam: Mucous Membranes Moist - Neck Exam Neck Exam: Normal Inspection - Respiratory Exam Respiratory Exam: NORMAL BREATHING PATTERN. absent: Rales, Rhonchi, Wheezes - Cardiovascular Exam Cardiovascular Exam: RRR, +S1, +S2 - GI/Abdominal Exam GI & Abdominal Exam: Soft, Normal Bowel Sounds. absent: Distended, Tenderness - Extremities Exam Extremities Exam: Normal Inspection. absent: Pedal Edema Additional comments: pedal pulses 2+ b/l dressing on lateral R hip clean/dry/intact - Back Exam Back Exam: NORMAL INSPECTION - Neurological Exam Neurological Exam: Alert, Awake, Oriented x3 - Psychiatric Exam Psychiatric exam: Normal Affect, Normal Mood - Skin Skin Exam: Normal Color, Warm Assessment and Plan - Assessment and Plan (Free Text) Assessment: 66yo M with past medical history osteoarthritis and tobacco abuse who admitted for status post R hip replacement POD2. Also noted to be anemic. Plan: 1. R Hip replacement - Post op day #2 - Follow up ortho recs - Ancef as per PMD - Patient will be discharged on Pain meds as per ortho - recommending Eliquis 5mg BID x2 weeks - cont NS@100 - Reglan prn nausea - Colace - Tylenol prn fever - patient is medically cleared for discharge 2. Tobacco abuse - Nicoderm patch - Duoneb prn - counseled on smoking cessation 3. Remote hx of anxiety - Klonopin prn anxiety 4. Anemia - Hgb lower than baseline - patient no visibly bleeding from incision site and no hematomas on exam - Per ortho team, the blood loss was not excessive in OR - follow up CBC should be done within [address] Max or Dr. Cherry to monitor for signs of blood loss GI ppx: Protonix DVT ppx: Lovenox Patient will follow up with Dr. Cherry (patient will call and make appointment) and Dr. Max (04/05) upon discharge. Medically stable. Patient was seen, examined and discussed with attending, Dr. Samia Romo PGY1 Pager # [phone] <Tere Gracia - Last Filed: 04/03/17 13:17> Objective - Vital Signs/Intake and Output Vital Signs (last 24 hours): Temp Pulse Resp BP Pulse Ox 99.7 F H 95 H 24 142/91 H 94 L 04/01/17 08:00 04/01/17 08:00 04/01/17 08:00 04/01/17 08:00 04/01/17 08:00 - Labs Labs: 04/01/17 06:30 04/01/17 06:30 Attending/Attestation - Attestation I have personally seen and examined this patient.: Yes I have fully participated in the care of the patient.: Yes I have reviewed all pertinent clinical information, including history, physical exam and plan: Yes Notes (Text): 04/03/17 13:15 Attending note; Patient seen and examined with resident. Patient is a 66 year old male with past medical history osteoarthritis and tobacco abuse who admitted for status post R hip replacement POD#2. Incision site is clean. No hematoma noted. Patient was evaluated by orthopedics today. Hemoglobin is stable. PT evaluation appreciated. patient was given prescription of Eliquis as per ortho. Pain management with Percocet. Home PT arranged by onsite case manager. Follow-up closely with orthopedics Dr. Ribera. Upon discharge the patient will follow up with PMD Dr. Cherry. case discussed with PMD in detail. Needs outpatient CBC follow-up. Continue PT at home. Patient has supportive family.
== END 2017-04-01 19:20 | disposition home health service (06) | DRG 470 ==
LOC: SDAINP 06:14 → INTOOBSV 06:14 → OBSVTOIN 09:00 → SDAINP 09:00 → EDSTATUS 11:15 → 5RNO 13:42
PROVIDERS: ADMIT Orthopaedic Surgery; ATTEND Orthopaedic Surgery
PROC: 0SR90JA Replacement of Right Hip Joint with Synthetic Substitute, Uncemented, Open Approach (ICD-10-PCS; principal; 2017-03-30 07:30)
DX: M16.11 Unilateral primary osteoarthritis, right hip (principal); D64.9 Anemia, unspecified; F41.9 Anxiety disorder, unspecified; J45.909 Unspecified asthma, uncomplicated; M21.70 Unequal limb length (acquired), unspecified site; Z72.0 Tobacco use